=== PATIENT | female | born 1990 | race Caucasian/White ===

== ENCOUNTER 2024-04-28 05:40 | Emergency (ER) | payer MEDICAID, OTHER ==
[~2024-04-28] VITALS: Ht 162.6 cm; Wt 88.0 kg
[2024-04-28 05:46] VITALS: BP 106/71; PULSE 88; RESP 16; TEMP 97.4; O2SAT 100
[2024-04-28 06:18] VITALS: BP 117/73; PULSE 87; RESP 13
[2024-04-28 06:19] VITALS: O2SAT 99
[2024-04-28] MEDS ORDERED: IBUP-2213 PO (06:37)
[2024-04-28] MEDS: KETOROLAC 30 MG/ML VIAL IM ONE (06:41)
== END 2024-04-28 06:44 | disposition home or self-care (01) ==
LOC: MED 05:40
DX: R07.89 Other chest pain (principal); F43.9 Reaction to severe stress, unspecified; M25.512 Pain in left shoulder; E11.9 Type 2 diabetes mellitus without complications; Z79.1 Long term (current) use of non-steroidal anti-inflammatories (NSAID)
CPT/HCPCS: 81025; 93005; 96372; 99283; J1885